=== PATIENT | female | born 1970 | race Caucasian/White ===

== ENCOUNTER 2017-01-25 20:08 | Emergency (ER) | payer MEDICARE, OTHER | END 2017-01-25 23:45 | disposition home or self-care (01) | LOC: FER 20:08 | DX: S30.0XXA Contusion of lower back and pelvis, initial encounter (principal); S20.229A Contusion of unspecified back wall of thorax, initial encounter; S70.02XA Contusion of left hip, initial encounter; F17.210 Nicotine dependence, cigarettes, uncomplicated; W01.0XXA Fall on same level from slipping, tripping and stumbling without subsequent striking against object, initial encounter; Y92.009 Unspecified place in unspecified non-institutional (private) residence as the place of occurrence of the external cause | CPT/HCPCS: 72072; 72110; 73502; J1170 ==